=== PATIENT | female | born 1975 | race Caucasian/White ===

== ENCOUNTER 2017-04-12 07:00 | Inpatient (IN) | payer OTHER ==
[~2017-04-12] VITALS: Ht 162.6 cm; Wt 68.0 kg
[~2017-04-12 07:00] MED LIST: ACIDOPHILUS1 EAC2 PO; AMBIEN10 MG PO; AMOX1TAB12 PO; CELEBREX400 MG PO; DEPAKOTE ER250 MG PO; DEPAKOTE ER500 MG PO; DOCUSATE SODIU100 MG PO; GABAPENTIN800 MG PO; LAMICTAL100 M1 PO; LIRICA PO; NAPR500T14 PO; PERCOCET 5-3251 EACH PO; PLAQUENIL PO; RIZATRIPTAN10 MG PO; TRAM1TAB98 PO; TRAZODONE HCL150 MG PO; XANAX1 MG PO
[2017-04-12] MEDS ORDERED: CATAFLAN PO (08:09)
[2017-04-12] MEDS ORDERED: OMEPRAZOLE40 MG PO (08:09)
[2017-04-12] MEDS ORDERED: ZANAFLEX4 M1 PO (08:10)
[2017-04-19] MEDS ORDERED: XANAX1 MG PO (13:11)
[2017-04-19] MEDS ORDERED: AMOX1TAB12 PO (13:11)
[2017-04-19] MEDS ORDERED: DOCUSATE SODIU100 MG PO (13:11)
[2017-04-19] MEDS ORDERED: MS CONTIN30 M1 PO (13:11)
[2017-04-19] MEDS ORDERED: PERCOCET 5-3251 EACH PO (13:11)
[2017-04-19] MEDS ORDERED: MEDROLPACK PO (13:12)
== END 2017-04-20 17:37 | disposition home or self-care (01) | DRG 455 ==
LOC: O/R 04-19 05:00 → SURH 04-19 05:00
PROVIDERS: Orthopaedic Surgery Orthopaedic Surgery of the Spine
PROC: 0SG30AJ Fusion of Lumbosacral Joint with Interbody Fusion Device, Posterior Approach, Anterior Column, Open Approach (ICD-10-PCS; 2017-04-19)
PROC: 0SG0071 Fusion of Lumbar Vertebral Joint with Autologous Tissue Substitute, Posterior Approach, Posterior Column, Open Approach (ICD-10-PCS; 2017-04-19)
PROC: 0ST40ZZ Resection of Lumbosacral Disc, Open Approach (ICD-10-PCS; 2017-04-19)
PROC: 0SG00AJ Fusion of Lumbar Vertebral Joint with Interbody Fusion Device, Posterior Approach, Anterior Column, Open Approach (ICD-10-PCS; 2017-04-19)
PROC: 07DS3ZZ Extraction of Vertebral Bone Marrow, Percutaneous Approach (ICD-10-PCS; 2017-04-19)
PROC: 00NY0ZZ Release Lumbar Spinal Cord, Open Approach (ICD-10-PCS; principal; 2017-04-19 09:45)
DX: M51.17 Intervertebral disc disorders with radiculopathy, lumbosacral region (principal); M96.1 Postlaminectomy syndrome, not elsewhere classified; M79.7 Fibromyalgia; F31.75 Bipolar disorder, in partial remission, most recent episode depressed; F17.210 Nicotine dependence, cigarettes, uncomplicated